=== PATIENT | male | born 1995 | race Caucasian/White ===

== ENCOUNTER 2021-10-11 23:54 | Emergency (ER) | payer OTHER ==
[~2021-10-11] VITALS: Ht 180.3 cm; Wt 134.0 kg
[2021-10-12 00:03] VITALS: BP 182/57
[2021-10-12] MEDS ORDERED: KETOROLAC 60MG/2ML VIAL IM ONE (00:30)
[2021-10-12] MEDS ORDERED: CYCLOBENZAPRINE 10MG TABLET PO ONE (00:30)
[2021-10-12] MEDS ORDERED: CYCL10TA7 MT (02:02)
[2021-10-12] MEDS ORDERED: IBUP-2030 MT (02:02)
== END 2021-10-12 02:43 | disposition home or self-care (01) ==
LOC: ER 23:54
DX: M25.551 Pain in right hip (principal); M79.604 Pain in right leg
CPT/HCPCS: 73502; 93971; 96372; 99284; J1885

== ENCOUNTER 2022-02-26 22:39 | Emergency (ER) | payer OTHER ==
[~2022-02-26] VITALS: Ht 175.3 cm; Wt 86.0 kg
[~2022-02-26 22:39] MED LIST: CYCL10TA21 MT; IBUP-2030 MT
[2022-02-26 23:38] LABS: BASOPHILS % 0.4 % (0.0-2.0); EOSINOPHILS % 0.8 % (0.0-5.0); HEMATOCRIT. 44.7 % (42.0-52.0); HEMOGLOBIN. 14.9 g/dL (14.0-18.0); LYMPHOCYTES % 20.3 % (20.0-50.0); MEAN CORPUSCULAR HEMOGLOBIN 28.6 pg (28.0-32.0); MEAN CORPUSCULAR VOLUME 86.2 fL (80.0-94.0); MEAN PLATELET VOLUME 9.8 fl (7.4-10.4); MONOCYTES % 4.7 % (2.0-8.0); NEUTROPHILS % 73.8 % (40.0-76.0); PLATELET 161 x1000/uL (130-400); RED BLOOD CELL COUNT 5.19 mill/uL (4.7-6.1); RED CELL DISTRIBUTION WIDTH 13.6 % (11.6-14.6)
[2022-02-26 23:45] LABS: CHLORIDE 108 mEq/L (98-107)
[2022-02-27] MEDS ORDERED: MORPHINE SULFATE 4 MG/ML CPJ (NOT FOR IM USE) IV ONE
[2022-02-27] MEDS ORDERED: ONDANSETRON HCL 4MG/2ML INJ IV ONE (00:30)
[2022-02-27] MEDS ORDERED: IOHEXOL-350 100 ML BOTTLE ONE (01:29)
[2022-02-28 12:46] VITALS: BP 148/60
== END 2022-02-28 13:32 | disposition short-term general hospital (02) ==
LOC: ER 22:39
DX: I71.02 Dissection of abdominal aorta (principal); I10 Essential (primary) hypertension; Z20.822 Contact with and (suspected) exposure to COVID-19
CPT/HCPCS: 36415; 70450; 71045; 71275; 74174; 80053; 83880; 84484; 85025; 86850; 86900; 86901; 87426; 93005; 96374; 96375; 99291; C9803; J2270; J2405; Q9967

== ENCOUNTER 2025-05-19 13:32 | Emergency (ER) | payer OTHER ==
[~2025-05-19] VITALS: Ht 180.3 cm; Wt 120.0 kg
[2025-05-19 13:42] VITALS: O2SAT 98
[2025-05-19 17:11] VITALS: BP 142/80; PULSE 67; RESP 18; TEMP 37.1; O2SAT 100
== END 2025-05-19 17:13 | disposition home or self-care (01) ==
LOC: ER 13:32
DX: R04.0 Epistaxis (principal); I10 Essential (primary) hypertension; Z88.0 Allergy status to penicillin; Z90.89 Acquired absence of other organs
CPT/HCPCS: 30901; 99283; 99284